=== PATIENT | male | born 1990 | race African-American/Black ===

== ENCOUNTER → 2020-07-16 10:46 | Outpatient (CLI) | payer BC, SELFPAY ==
--- NOTE | ~2020-07-16 | XR_ITS ---
XR hip RT min 2V DATE: 07/16/2020 11:49 INDICATION: Bilateral hip and right ankle pain for years TECHNIQUE: AP, lateral, crosstable lateral views of right hip COMPARISON: July 16, 2020 left hip FINDINGS: A compression screw is noted in each femoral head. There is bilateral femoral head deformit y. Findings may related to slipped capital femoral epiphysis. There is bilateral hip joint space narr owing and spurring consistent with osteoarthritis. Mild increased density of the femoral heads is noted. Avascular necrosis is not excluded. No recent fracture or dislocation, periosteal reaction or bone destruction. Normal alignment at the sacroiliac joints and pubic symphysis. 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 EL POWER MECHANIC
--- NOTE | ~2020-07-16 | XR_ITS ---
XR hip LT min 2V DATE: 07/16/2020 11:49 INDICATION: Bilateral hip pain TECHNIQUE: AP, lateral and crosstable lateral views of left hip COMPARISON: July 16, 2020 right hip FINDINGS: A compression screw device is noted in each femoral head, likely for prior slipped capital femoral epiphysis repair. Mildly increased density of the femoral heads is noted; avascular necrosis is not excluded. There is bilateral hip osteoarthritis. No recent fracture or dislocation. No periosteal reaction or bone destruction. Normal alignment at th e pubic symphysis and sacroiliac joints. IMPRESSION: Compression screw in each femoral head, likely related to prior repair for slipped capita l femoral epiphysis; recommend correlation with clinical history Bilateral hip osteoarthritis Cannot exclude avascular necrosis of the femoral heads Reviewed, dictated and finalized at location B. Y CARVER IMPRESSION: Compression screw in each femoral head, likely related to prior rep air for slipped capital femoral epiphysis; recommend correlation with clinical history Bilateral hip osteoarthritis Cannot exclude avascular necrosis of the femoral heads
--- NOTE | ~2020-07-16 | XR_ITS ---
XR chest 2V DATE: 07/16/2020 11:49 INDICATION: Tobacco use TECHNIQUE: PA and lateral views COMPARISON: None FINDINGS: Normal heart size. No hilar or mediastinal enlargement. No pulmonary infiltrate or consolid ation, pleural effusion or pulmonary vascular congestion or pneumothorax. Included skeletal structure s are unremarkable. IMPRESSION: No active cardiopulmonary disease Reviewed, dictated and finalized at location B. ER OUT
--- NOTE | ~2020-07-16 | XR_ITS ---
XR ankle RT min 3V DATE: 07/16/2020 11:48 INDICATION: Bilateral hip and right ankle pain for years TECHNIQUE: 4 views COMPARISON: None FINDINGS: Patchy intramedullary sclerosis of the distal tibial diametaphyseal area may be related to prior infarction or likely benign chondroid tumor. No fracture or dislocation of the ankle or disruption of the ankle mortise. No periosteal reaction or bone destruction. The ankle mortise is intact. IMPRESSION: Patchy intramedullary sclerosis of distal tibial diametaphyseal area, likely due to old i nfarct or benign chondroid tumor Reviewed, dictated and finalized at location B. 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
== END ==
PROVIDERS: PCP Emergency Medicine; Visit Provider Emergency Medicine
DX: M25.571 Pain in right ankle and joints of right foot (principal); M16.0 Bilateral primary osteoarthritis of hip; Z72.0 Tobacco use
CPT/HCPCS: 71046; 73502; 73610

== ENCOUNTER 2020-08-14 09:11 | Outpatient (CLI) | payer BC, SELFPAY ==
--- NOTE | ~2020-08-14 | US_ITS ---
EXAMINATION: US abdomen complete DATE: 08/14/2020 09:39 INDICATION: Abdominal pain TECHNIQUE: Multiple grayscale and Doppler ultrasound images of the abdomen were obtained. COMPARISON: None FINDINGS: The pancreatic head and body are normal in appearance. The pancreatic tail is not visualized. The vi sualized proximal to mid aorta and inferior vena cava are normal. Liver has normal echogenicity and c ontour, with a smooth surface. No liver lesion identified. No intrahepatic biliary duct dilation susp ected. Portal venous flow was seen in the hepatopetal, normal direction and has normal Doppler wavefo rm. The gallbladder is normal in appearance. There is no cholelithiasis. The common bile duct measur es 2 mm, which is normal. Sonographic Meehan sign was reported as negative by the ore fielder. There is normal renal contour and echogenicity bilaterally. The right kidney measures 9.9 x 3.5 x 5.2 cm an d the left 10.4 x 5.7 x 3.7 cm. There are no focal renal lesions identified. There is no hydronephr osis. Spleen is normal measuring 9.0 cm in maximal length. IMPRESSION: 1. Normal abdominal ultrasound. Reviewed, dictated and finalized at location B.
== END 2020-08-14 09:12 | disposition home or self-care (01) ==
LOC: ANHIMG 09:13
PROVIDERS: PCP Emergency Medicine; Visit Provider Emergency Medicine
DX: R10.9 Unspecified abdominal pain (principal)
CPT/HCPCS: 76700

== ENCOUNTER 2021-12-29 18:24 | Emergency (ER) | payer BC, SELFPAY ==
--- NOTE | ~2021-12-29 | CT_ITS ---
EXAMINATION: CT abdomen pelvis w con DATE: 12/29/2021 21:18 INDICATION: RLQ abdominal pain, hematuria TECHNIQUE: Computed tomography (CT) of the abdomen and pelvis was performed with 100 mL Omnipaque-350 intravenous contrast. Automated exposure control and iterative reconstruction technique were employe d. The dose-length product was 264.31 mGy-cm. COMPARISON: None. FINDINGS: Exam limited by paucity of intra-abdominal fat and beam hardening from bilateral hip arthroplasties. Lower thorax: Unremarkable Liver: Normal. Biliary/Gallbladder: Gallbladder is collapsed. No bile duct dilation. Pancreas: No mass or duct dilation. Spleen: Normal. Adrenals:No mass. Kidneys: No mass, stone, or hydronephrosis. GI tract: No small or large bowel dilation. Appendix not visualized. Mesentery/Peritoneum: No ascites, mass, or free air. Retroperitoneum: No mass. Pelvis: Pelvic organs are obscured by beam hardening artifact. Soft Tissues: Soft tissues and body wall unremarkable. Bones: Bilateral hip arthroplasties. No acute osseous finding. IMPRESSION: Limited examination due to paucity of intra-abdominal fat and obscuration of the pelvis by beam harde booker artifact from hip arthroplasties. Appendix not visualized. Distal ureters and bilateral UVJs not visualized. Within those constraints, no acute abdominopelvic process is detected. Reviewed, dictated and finalized at location K. IMPRESSION: Limited examination due to paucity of intra-abdominal fat and obscuration of th e pelvis by beam hardening artifact from hip arthroplasties. Appendix not visua lized. Distal ureters and bilateral UVJs not visualized. Within those constrain ts, no acute abdominopelvic process is detected.
[2021-12-29 18:26] VITALS: BP 100/45; PULSE 55; RESP 16; TEMP 36.4; O2SAT 100
[2021-12-29 19:05] LABS: Basophils Absolute Auto 0.1 K/mm3 (0.0-0.1); Basophils Percent Auto 0.6 % (0.2-1.2); Eosinophils Absolute Auto 0.3 K/mm3 (0-0.3); Eosinophils Percent Auto 3.3 % (0-4.4); Hematocrit 38.3 % (42.0-52.0); Hemoglobin 12.1 g/dL (14.0-18.0); Immature Granulocyte Absolute 0.03 K/mm3 (0.00-0.031); Immature Granulocyte Percent A 0.4 % (0-0.5); Lymphocytes Absolute Auto 1.72 K/mm3 (0.9-3.2); Lymphocytes Percent Auto 21.5 % (18.3-44.2); Mean Corpuscular HGB Conc 31.6 g/dl (32-36); Mean Corpuscular Hemoglobin 29.2 pg (26-34); Mean Corpuscular Volume 92.3 fl (80-100); Mean Platelet Volume 11.4 fl (7.4-10.4); Monocytes Absolute Auto 0.6 K/mm3 (0.1-0.6); Monocytes Percent Auto 7.9 % (2.6-8.5); Neutrophils Absolute Auto 5.3 K/mm3 (1.3-6.7); Neutrophils Percent Auto 66.3 % (45.5-73.1); Platelet Count Result 220 k/mm3 (150-375); Red Blood Count 4.15 M/mm3 (4.6-6.20); Red Cell Distribution Width 14.3 % (11.5-14.5)
[2021-12-29 19:11] LABS: Appearance Urine Slightly Cloudy (Clear); Bilirubin Urine Negative (Negative); Blood Urine 3+ (Negative); Color Urine Yellow (Yellow); Glucose Urine UA Negative (Negative); Ketones Urine Trace mg/dL (Negative); Leukocyte Esterase Ur Negative LEU/UL (Negative); Nitrate Urine Negative (Negative); Protein Urine 1+ mg/dL (Negative); Specific Grav Ur >= 1.030 (1.001-1.035); Urobilinogen Urine 0.2 mg/dL (<2.0)
[2021-12-29 19:15] LABS: Alanine Aminotransferase 13 U/L (6-50); Albumin Level 4.2 g/dL (3.5-5.1); Alkaline Phosphatase 78 U/L (38-126); Anion Gap 7 mmol/L (8-16); Aspartate Amino Transferase 22 U/L (17-59); Bacteria Urine Trace /hpf; Bilirubin,Total 0.5 mg/dL (0.2-1.3); Blood Urea Nitrogen 15 mg/dL (9-20); Calcium 8.9 mg/dL (8.4-10.2); Carbon Dioxide 28 mmol/L (22-30); Chloride 102 mmol/L (98-107); Estimated CRCL calculation 79 ml/min; Estimated Glomerular Filt Rate > 60; Glucose 125 mg/dL (65-110); Lipase 94 U/L (23-300); Mucus Urine Rare /lpf; RBC Urine >75 /hpf (0-2); Sodium 137 mmol/L (137-145); Squamous Epithelial Cell Urine Rare /hpf (Few)
[2021-12-29 19:16] LABS: Add Urine Microscopic? YES
--- NOTE | 2021-12-29 20:46 | ED.ABDPAIN ---
HPI - Abdominal Pain General Chief Complaint: Abdominal Pain Stated Complaint: RUQ pain Time Seen by Provider: 12/29/21 20:28 History of Present Illness HPI narrative: Patient is a 31-year-old male here for evaluation of right sided abdominal pain for the past 6 hours. Patient states that the pain came on when he was straining to have a bowel movement. Describes the pain as crampy in nature. Since then it has been intermittent, and is now about a 5/10. He denies any nausea, vomiting, fevers, chills. Denies any diarrhea, blood in stools or constipation. Patiently states that he was supposed to trichomonas by his girlfriend a week ago. He has since been experiencing dysuria and white penile discharge. He has a history of STIs and states this feels similar. Related Data Allergies Allergy/AdvReac Type Severity Reaction Status Date / Time amitriptyline Allergy Hives Verified 12/29/21 20:52 shellfish derived Allergy Hives Verified 12/29/21 20:52 Review of Systems Review of Systems: Gen.: Denies fevers or chills Eyes: Denies eye pain or visual change ENT: Denies congestion Respiratory: Denies shortness of breath or cough CV: Denies chest pain or palpitations GI: Reports abdominal pain. Denies nausea, emesis or diarrhea : denies burning, urgency, frequency or hematuria Musculoskeletal: Denies back pain or muscle pain Neuro: Denies numbness, tingling, weakness or focal weakness Skin: Denies rash Except as documented, all other systems reviewed and negative Exam Narrative: APPEARANCE: No acute distress, nontoxic, resting in bed EYES: EOMI HEENT: Normocephalic, atraumatic, OMM RESPIRATORY: No respiratory distress Clear to auscultation bilaterally with no rhonchi wheezing or rales. CARDIOVASCULAR: Regular rate and rhythm without murmurs rubs or gallops. ABDOMINAL: Tender to palpation in right lower quadrant. Normoactive bowel sounds. Soft, non-distended. MUSCULOSKELETAL: Moves all extremities. No clubbing, cyanosis or edema. NEURO: Awake and alert. Following commands, speech normal, no focal deficits SKIN: Warm, dry. No rashes lesions or abrasions PSYCHIATRIC: Normal affect/mood Course Vital Signs Vital signs: Vital Signs Temperature 97.6 F 12/29/21 18:26 Pulse Rate 55 L 12/29/21 18:26 Respiratory Rate 16 12/29/21 18:26 Blood Pressure 100/45 L 12/29/21 18:26 Pulse Oximetry 100 12/29/21 18:26 Oxygen Delivery Room Air 12/29/21 18:26 Temperature 97.6 F 12/29/21 18:26 Pulse Rate 60 12/29/21 21:49 Respiratory Rate 22 H 12/29/21 21:49 Blood Pressure 114/66 12/29/21 21:49 Pulse Oximetry 100 12/29/21 21:49 Oxygen Delivery Room Air 12/29/21 18:26 MDM - Abdominal Pain MDM Narrative Medical decision making narrative: 31-year-old male here for evaluation of right-sided abdominal pain for the past day, came on after straining to have a bowel movement. Patient additionally tells me he was exposed to trichomonas and would like treatment for such as he has had penile discharge and dysuria. Here, he is nontoxic-appearing, he was mildly tender on the right side of his abdomen but had no rebound tenderness or guarding, and sx improved after pepcid. He has no leukocytosis or significant electrolyte abnormalities. He does have blood in his urine and some white blood cells. Testing for chlamydia, gonorrhea and trichomonas was sent. CT abdomen pelvis did not visualize the appendix due to artifact of the hips, however his Jasmine score 2; unlikely appendicitis, given that his symptoms improved after an antacid feel unlikely to be appendicitis. CT scan did not also visualize the distal ureters, but feel unlikely to be obstructing kidney stone given patient's lack of flank pain, nausea, or severity of pain. He was given reasons to return to the ED and he voiced understanding. He was treated prophylactically with metronidazole in the ED for trich. Lab Data Result diagrams: 12/29/21 18:51
[2021-12-29 20:51] VITALS: BP 110/64; PULSE 67; RESP 16; O2SAT 100
[2021-12-29] MEDS: FAMOTIDINE 20 MG/2 ML VIAL IV PUSH (20:58)
[2021-12-29 21:49] VITALS: BP 114/66; PULSE 60; RESP 22; O2SAT 100
[2021-12-29] MEDS: metroNIDAZOLE 250 MG TABLET 2000 MG PO (22:20)
== END 2021-12-29 22:45 | disposition home or self-care (01) ==
PROVIDERS: Emergency Medicine; Physician Assistant; Emergency Provider Emergency Medicine; PCP Emergency Medicine
DX: R31.9 Hematuria, unspecified (principal); Z11.3 Encounter for screening for infections with a predominantly sexual mode of transmission
CPT/HCPCS: 36415; 74177; 80053; 81001; 83690; 85025; 87086; 87491; 87591; 96374; 99284; A9270; Q9967